=== PATIENT | female | born 1985 | race Caucasian/White ===

== ENCOUNTER 2020-07-29 16:29 | Emergency (ER) | payer BC, OTHER ==
[~2020-07-29] VITALS: Ht 162.6 cm; Wt 59.4 kg
[2020-07-29 16:29] VITALS: BP 107/76
[2020-07-29] MEDS ORDERED: IBUPROFEN 600 MG TABLET PO ONE ×2 (17:05→17:30)
== END 2020-07-29 18:43 | disposition home or self-care (01) ==
LOC: ER 16:37
DX: S02.5XXA Fracture of tooth (traumatic), initial encounter for closed fracture (principal); Z98.890 Other specified postprocedural states; X58.XXXA Exposure to other specified factors, initial encounter; Y93.89 Activity, other specified; Y92.89 Other specified places as the place of occurrence of the external cause; Y99.8 Other external cause status

== ENCOUNTER 2020-08-01 15:04 | Emergency (ER) | payer OTHER ==
[~2020-08-01] VITALS: Ht 162.6 cm; Wt 59.9 kg
[2020-08-01 15:48] VITALS: BP 115/73
== END 2020-08-01 16:43 | disposition home or self-care (01) ==
LOC: ER 15:09
DX: O26.892 Other specified pregnancy related conditions, second trimester (principal); K08.89 Other specified disorders of teeth and supporting structures; Z3A.18 18 weeks gestation of pregnancy; Z98.890 Other specified postprocedural states

== ENCOUNTER 2021-01-02 16:06 | Emergency (ER) | payer OTHER ==
[~2021-01-02] VITALS: Ht 162.6 cm; Wt 59.0 kg
[2021-01-02 16:18] VITALS: BP 119/72
[2021-01-02] MEDS ORDERED: HYDROCODONE/APAP 5/325MG TABLET ONE (17:17)
[2021-01-02] MEDS ORDERED: HYDROCODONE/APAP 5/325MG TABLET PO ONE (17:30)
[2021-01-02] MEDS ORDERED: HYDR-4209 PO (17:49)
== END 2021-01-02 17:53 | disposition home or self-care (01) ==
LOC: ER 16:12
DX: G89.18 Other acute postprocedural pain (principal); Z76.0 Encounter for issue of repeat prescription; Z98.890 Other specified postprocedural states

== ENCOUNTER 2021-07-30 15:32 | Emergency (ER) | payer OTHER ==
[~2021-07-30] VITALS: Ht 162.6 cm; Wt 54.4 kg
[~2021-07-30 15:32] MED LIST: HYDR-4209 PO
[2021-07-30 15:50] VITALS: BP 115/80
[2021-07-30] MEDS ORDERED: IBUP-1955 PO (16:00)
[2021-07-30] MEDS ORDERED: NEOM10DR11 OT (16:00)
--- NOTE | 2021-07-30 16:05 | NUR ---
Patient discharged to home in stable condition. Written and verbal after care instructions given. Patient verbalizes understanding of instruction.
== END 2021-07-30 16:05 | disposition home or self-care (01) ==
LOC: ER 15:35
DX: H60.91 Unspecified otitis externa, right ear (principal); M25.571 Pain in right ankle and joints of right foot; Z98.890 Other specified postprocedural states; Z79.899 Other long term (current) drug therapy

== ENCOUNTER 2021-12-03 08:13 | Emergency (ER) | payer OTHER ==
[~2021-12-03] VITALS: Ht 162.6 cm; Wt 54.4 kg
[~2021-12-03 08:13] MED LIST changes: +IBUP-1955 PO; +NEOM10DR11 OT
[2021-12-03 08:20] VITALS: BP 136/75
[2021-12-03] MEDS ORDERED: HYDROCODONE/APAP 5/325MG TABLET PO ONE (08:30)
[2021-12-03] MEDS ORDERED: HYDROCODONE/APAP 5/325MG TABLET ONE (08:36)
[2021-12-03] MEDS ORDERED: HYDR-3972 PO (08:56)
[2021-12-03] MEDS ORDERED: SULF1TAB48 PO (08:56)
[2021-12-03] MEDS ORDERED: CEPH500C2 PO (08:56)
[2021-12-03] MEDS ORDERED: CEFTRIAXONE 1 G VIAL IM ONE (09:00)
[2021-12-03] MEDS ORDERED: CEFTRIAXONE 1 G VIAL ONE (09:14)
[2021-12-03] MEDS ORDERED: LIDOCAINE /MPF 1% VIAL 5 ML VIAL ONE (09:14)
--- NOTE | 2021-12-03 09:40 | NUR ---
Patient discharged to home in stable condition. Written and verbal after care instructions given. Patient verbalizes understanding of instruction.
== END 2021-12-03 09:57 | disposition home or self-care (01) ==
LOC: ER 08:16
DX: L03.012 Cellulitis of left finger (principal); Z79.1 Long term (current) use of non-steroidal anti-inflammatories (NSAID); Z79.899 Other long term (current) drug therapy
CPT/HCPCS: 10060; 96372; 99283; J0696; J3490

== ENCOUNTER 2021-12-10 15:14 | Emergency (ER) | payer OTHER ==
[~2021-12-10] VITALS: Ht 162.6 cm; Wt 54.4 kg
[~2021-12-10 15:14] MED LIST changes: +CEPH500C2 PO; +HYDR-3972 PO; +SULF1TAB48 PO
[2021-12-10 15:23] VITALS: BP 119/60
--- NOTE | 2021-12-10 15:25 | NUR ---
BIB SELF C/O L WRIST PAIN 07/11 X 3 DAYS. RADIAL PULSE PRESENT. WILL CONTINUE TO MONITOR THE PATIENT.
[2021-12-10] MEDS ORDERED: IBUP-1955 PO (16:44)
[2021-12-10] MEDS ORDERED: KETOROLAC TROMETHAMINE 15 MG/ML VIAL ONE (16:49)
[2021-12-10] MEDS: KETOROLAC TROMETHAMINE INJ 30 MG/ML VIAL IM ONE (16:55)
--- NOTE | 2021-12-10 16:55 | NUR ---
PT SIGNED WAIVER.
--- NOTE | 2021-12-10 17:07 | NUR ---
Patient discharged to home in stable condition. Written and verbal after care instructions given. Patient verbalizes understanding of instruction.
== END 2021-12-10 17:08 | disposition home or self-care (01) ==
LOC: ER 15:17
DX: M67.834 Other specified disorders of tendon, left wrist (principal); Z85.858 Personal history of malignant neoplasm of other endocrine glands; Z79.891 Long term (current) use of opiate analgesic; Z79.2 Long term (current) use of antibiotics; Z79.1 Long term (current) use of non-steroidal anti-inflammatories (NSAID); Z79.83 Long term (current) use of bisphosphonates
CPT/HCPCS: 29260; 73110; 96372; 99283; J1885